=== PATIENT | male | born 1955 | race Caucasian/White ===

== ENCOUNTER 2024-09-13 16:23 | Inpatient (IN) | payer OTHER ==
[~2024-09-13] VITALS: Ht 175.3 cm; Wt 95.3 kg
--- NOTE | 2024-09-13 16:50 | NUR ---
SE RECIBE PTE ALERTA, ORIENTADO X3 Y AMBULANDO. PTE REFIERE DEDRICK DOLOR EN CUADRANTE INFERIOR DERECHO DESDE LA MANANA Y NAUSEAS. SE MIDEN S/V Y SE UBICA.
[2024-09-13] MEDS ORDERED: CEFTRIAXONE SODIUM 1,000 MG VIAL IV ONE (17:15)
[2024-09-13] MEDS ORDERED: KETOROLAC TROMETHAMINE 30 MG VIAL IV ONE (17:15)
[2024-09-13] MEDS ORDERED: FAMOtidine 10 MG/ML (4ML VIAL) IV ONE (17:15)
[2024-09-13 18:31] LABS: BASO % 0.3 % (0.1-1.2); EOS # 0.25 (0.04-0.54); EOS % 2.9 % (0.7-7.0); HEMATOCRIT 41.7 % (40.1-51.0); HEMOGLOBIN 13.8 g/dL (13.7-17.5); LYMPH # 1.87 (1.18-3.74); LYMPH % 21.5 % (19.3-53.1); MEAN CORPUSCULAR HEMOGLOBIN 29.9 pg (25.6-32.2); MONO # 0.58 (0.24-0.82); MONO % 6.7 % (4.7-12.5); NEUT # 5.95 (1.56-6.13); NEUT % 68.4 % (34.0-71.1); PLATELET COUNT 251 K/uL (163-369); RED BLOOD COUNT 4.61 M/uL (4.63-6.08)
--- NOTE | 2024-09-13 18:36 | NUR ---
SE ORIENTA PTE SOBRE TX MEDICO Y REFIERE ACEPTAR. SE EJECUTAN ORDENES MEDICAS A PRINCE TOTALIDAD.
[2024-09-13 19:11] LABS: INR 1.1; PARTIAL THROMBOPLASTIN TIME 30.3 SECONDS (22.0-34.0); PROTHROMBIN TIME 11.9 SECONDS (9.0-11.5)
[2024-09-13 19:17] LABS: URINE APPEARANCE Clear; URINE BILIRRUBIN Negative (NEGATIVE); URINE BLOOD Negative; URINE COLOR Yellow; URINE GLUCOSE Negative (NEGATIVE); URINE KETONE Trace (NEGATIVE); URINE LEUKOCYTE Negative; URINE NITRATE Negative; URINE PROTEIN Negative (NEGATIVE); URINE UROBILINOGEN 0.2 E.U./dl
[2024-09-13 19:17] LABS: ALBUMIN 3.6 gm/dL (3.4-5.0); BILIRUBIN TOTAL 0.69 mg/dL (0.3-1.2); BILIRUBIN,CONJUGATED 0.17 mg/dL (0.0-0.2); BILIRUBIN,UNCONJUGATED 0.52 mg/dL (0.0-0.6); CALCIUM 8.7 mg/dL (8.5-10.1); CREATININE SERUM 1.14 mg/dL (0.70-1.30); GFR 63.5; GLOBULINA 3.5 G/DL (2.4-3.5); POTASSIUM 3.93 mEq/L (3.5-5.1); TOTAL PROTEIN 7.1 gm/dL (6.4-8.2)
[2024-09-13 19:21] LABS: URINE BACTERIA 7.3 uL (0.0-1933); URINE EPITHELIAL CELLS 1.5 uL (0.0-38.8); URINE RBC 3.8 uL (0.0-20.8)
[2024-09-13 19:52] LABS: URINE WBC 1.4 uL (0.0-23.2)
[2024-09-13] MEDS ORDERED: PIPERACILLIN/TAZOBACTAM SODIUM 3.375 GM VIAL IV ONE (22:15)
[2024-09-13] MEDS ORDERED: 0.9 % SODIUM CHLORIDE 1,000 ML IV SCH (23:30)
[2024-09-13] MEDS ORDERED: ONDANSETRON HCL 4 MG in 0.9 % SODIUM CHLORIDE 50 ML IV PRN (23:30)
[2024-09-13] MEDS ORDERED: MORPHINE SULFATE 4 MG/ML CARTRIDGE IV PRN (23:30)
[2024-09-14] MEDS ORDERED: PIPERACILLIN/TAZOBACTAM SODIUM 3.375 GM in 0.9 % SODIUM CHLORIDE 100 ML IV SCH
[2024-09-14 02:18] VITALS: BP 144/77; O2SAT 97
[2024-09-14 08:00] VITALS: BP 117/84; O2SAT 93
[2024-09-14 13:22] VITALS: BP 147/75; O2SAT 99
[2024-09-14] MEDS ORDERED: MORPHINE SULFATE 4 MG/ML VIAL IV ONE (16:55)
[2024-09-14] MEDS ORDERED: SUCRALFATE 1 G TABLET PO SCH (17:00)
[2024-09-14] MEDS ORDERED: SIMETHICONE 125 MG CAPSULE PO SCH (17:00)
[2024-09-14 17:50] VITALS: BP 145/71; O2SAT 96
[2024-09-15 02:00] VITALS: BP 140/83; O2SAT 96
[2024-09-15 08:00] VITALS: BP 158/77; O2SAT 95
[2024-09-15] MEDS ORDERED: LACTOBACILLUS ACIDOPHILUS 1 CAP CAP PO SCH (09:00)
[2024-09-16 00:19] VITALS: BP 129/70; O2SAT 94
== END 2024-09-16 17:49 | disposition home or self-care (01) | DRG 399 ==
LOC: ER 17:36 → SURH 23:13
PROVIDERS: General Practice; Surgery; ADMIT Internal Medicine; ATTEND Internal Medicine
PROC: BW21YZZ Computerized Tomography (CT Scan) of Abdomen and Pelvis using Other Contrast (ICD-10-PCS; 2024-09-13)
PROC: 0DTJ4ZZ Resection of Appendix, Percutaneous Endoscopic Approach (ICD-10-PCS; principal; 2024-09-14 10:00)
DX: K35.80 Unspecified acute appendicitis (principal); D49.0 Neoplasm of unspecified behavior of digestive system; R59.0 Localized enlarged lymph nodes